=== PATIENT | male | born 1990 | race Hispanic/Latino ===

== ENCOUNTER 2017-09-08 22:50 | Emergency (ER) | payer OTHER, SELFPAY ==
[2017-09-08 22:55] VITALS: BP 125/77; PULSE 77; RESP 20; TEMP 37.2; O2SAT 99
[2017-09-09] MEDS: NEOMY/POLYM B/HC OTIC 10 ML 4 DROPS EAR-BOTH (00:04)
[2017-09-09 00:12] VITALS: BP 113/63; PULSE 66; RESP 18; TEMP 37.2; O2SAT 100
--- NOTE | 2017-09-09 01:15 | ED.EAR ---
HPI - Ear Problem General Chief complaint: Ear Stated complaint: RIGHT EAR PAIN Time Seen by Provider: 09/08/17 23:51 Source: patient Mode of arrival: ambulatory Limitations: no limitations History of Present Illness HPI Narrative: Patient is a 26-year-old male who presents with right ear pain. It has been off and on for about 2 weeks. 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 He feels as though there is pressure buildup does not really notice any drainage. He has not had any fevers. No left ear pain or nasal congestion. His MD Complaint: ear pain Related Data Allergies Allergy/AdvReac Type Severity Reaction Status Date / Time No Known Allergies Allergy Uncoded 05/22/17 12:47 Review of Systems Review of Systems GENERAL: Denies chills,fever HEENT: See HPI RESPIRATORY: Denies dyspnea, cough, wheezing CARDIOVASCULAR: Denies chest pain, palpitations GASTROINTESTINAL: Denies nausea, vomiting MUSCULOSKELETAL: Denies extremity pain, injury SKIN: No rash, no laceration, no pruritus NEUROLOGIC: Denies weakness, dizziness, headache, numbness 8 point review of systems is negative except for those stated above and HPI PFSH Medical History Healthy adult (Acute) Social History Smoking Status: Never smoker alcohol intake: never substance use type: does not use Exam Initial Vital Signs Initial Vital Signs: Vital Signs Temperature 99.0 F 09/08/17 22:55 Pulse Rate 77 09/08/17 22:55 Respiratory Rate 20 09/08/17 22:55 Blood Pressure 125/77 H 09/08/17 22:55 Pulse Oximetry 99 09/08/17 22:55 Const General: cooperative and healthy appearing [facility] Head: normal to inspection and normocephalic Ears: TM normal on the left, EAC abnormal otic discharge purulent on the right and unable to visualize TM on the right Nose: external nose normal Face and sinus: normal facial exam Eyes General: appearance normal, both eyes and all related structures Chest Chest: normal inspection of the chest Resp Effort & Inspection: normal respiratory effort Auscultation: clear to auscultation bilaterally, no rales, no rhonchi and no wheezes Cardio Rate: regular rate Rhythm: regular rhythm Heart Sounds: S1 normal and S2 normal Skin General: no rashes or lesions noted Course Orders Ordered: Discontinued Medications Neomycin/Polymyxin/Hydrocortisone (Cortisporin Otic) 4 drops EAR-BOTH NOW ONE Stop: 09/08/17 23:54 Last Admin: 09/09/17 00:04 Dose: 4 drops Vital Signs - 8 hr 09/08/17 22:55 09/09/17 00:12 Temperature 99.0 F 98.9 F Pulse Rate 77 66 Respiratory Rate 20 18 Blood Pressure 125/77 H 113/63 Pulse Oximetry 99 100 Discharge Plan Departure Patient Disposition: Home, Self-Care Clinical Impression: Otitis externa Discharge Date/Time: 09/09/17 00:13 Interventions: ED Discharge Assessment Last Done: 09/09/17 00:12 Instructions: DI for Otitis Externa Activity Restrictions/Additional Instructions: *You have been diagnosed with right ear infection *What to do: If not better after drops may require on pills as well. Please follow-up with your primary *Continue to take medications as directed 4 drops in the affected ear 3 times a day for 1 week *Follow up with your primary care provider in 2-3 days *Return to ER if you should have increasing pain, fever, or any new, worsening or concerning symptoms Referrals: [facility] [Provider Group]
--- NOTE | 2017-09-09 01:18 | ED_ITS ---
HPI - Ear Problem General Chief complaint: Ear Stated complaint: RIGHT EAR PAIN Time Seen by Provider: 09/08/17 23:51 Source: patient Mode of arrival: ambulatory Limitations: no limitations History of Present Illness HPI Narrative: Patient is a 26-year-old male who presents with right ear pain. It has been off and on for about 2 weeks. 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 He feels as though there is pressure buildup does not really notice any drainage. He has not had any fevers. No left ear pain or nasal congestion. His MD Complaint: ear pain Related Data Allergies Allergy/AdvReac Type Severity Reaction Status Date / Time No Known Allergies Allergy Uncoded 05/22/17 12:47 Review of Systems Review of Systems GENERAL: Denies chills,fever HEENT: See HPI RESPIRATORY: Denies dyspnea, cough, wheezing CARDIOVASCULAR: Denies chest pain, palpitations GASTROINTESTINAL: Denies nausea, vomiting MUSCULOSKELETAL: Denies extremity pain, injury SKIN: No rash, no laceration, no pruritus NEUROLOGIC: Denies weakness, dizziness, headache, numbness 8 point review of systems is negative except for those stated above and HPI PFSH Medical History Healthy adult (Acute) Social History Smoking Status: Never smoker alcohol intake: never substance use type: does not use Exam Initial Vital Signs Initial Vital Signs: Vital Signs Temperature 99.0 F 09/08/17 22:55 Pulse Rate 77 09/08/17 22:55 Respiratory Rate 20 09/08/17 22:55 Blood Pressure 125/77 H 09/08/17 22:55 Pulse Oximetry 99 09/08/17 22:55 Const General: cooperative and healthy appearing [facility] Head: normal to inspection and normocephalic Ears: TM normal on the left, EAC abnormal otic discharge purulent on the right and unable to visualize TM on the right Nose: external nose normal Face and sinus: normal facial exam Eyes General: appearance normal, both eyes and all related structures Chest Chest: normal inspection of the chest Resp Effort & Inspection: normal respiratory effort Auscultation: clear to auscultation bilaterally, no rales, no rhonchi and no wheezes Cardio Rate: regular rate Rhythm: regular rhythm Heart Sounds: S1 normal and S2 normal Skin General: no rashes or lesions noted Course Orders Ordered: Discontinued Medications Neomycin/Polymyxin/Hydrocortisone (Cortisporin Otic) 4 drops EAR-BOTH NOW ONE Stop: 09/08/17 23:54 Last Admin: 09/09/17 00:04 Dose: 4 drops Vital Signs - 8 hr 09/08/17 22:55 09/09/17 00:12 Temperature 99.0 F 98.9 F Pulse Rate 77 66 Respiratory Rate 20 18 Blood Pressure 125/77 H 113/63 Pulse Oximetry 99 100 Discharge Plan Departure Patient Disposition: Home, Self-Care Clinical Impression: Otitis externa Discharge Date/Time: 09/09/17 00:13 Interventions: ED Discharge Assessment Last Done: 09/09/17 00:12 Instructions: DI for Otitis Externa Activity Restrictions/Additional Instructions: *You have been diagnosed with right ear infection *What to do: If not better after drops may require on pills as well. Please follow-up with your primary *Continue to take medications as directed 4 drops in the affected ear 3 times a day for 1 week *Follow up with your primary care provider in 2-3 days *Return to ER if you should have increasing pain, fever, or any new, worsening or concerning symptoms Referrals: [facility] [Provider Group]
== END 2017-09-09 00:13 | disposition home or self-care (01) ==
PROVIDERS: Emergency Provider Emergency Medicine
DX: H60.91 Unspecified otitis externa, right ear (principal)
CPT/HCPCS: 99282